=== PATIENT | female | born 2000 | race Caucasian/White ===

== ENCOUNTER → 2018-08-03 | Outpatient (CLI) | payer BC ==
--- NOTE | 2018-08-03 16:34 | RADIOLOGY IMAGING REPORT ---
[place] [facility] [place] Mikki Lucas : 2000 MR: [id number] V: [id number] EXAM DATE: ORDERING PHYSICIAN: JAMIA CAMPOS TECHNOLOGIST: Location: [facility] [place] Patient: Mikki Lucas : 2000 Visit/Account:[id number] Date of Sevice: 08/03/2018 Exam type: SCOLIOSIS SERIES History: Scoliosis, back pain Comparison: None. Findings: There is a 43.5 degree dextro convex scoliosis of the thoracic spine with the curvature centered abou t T8-9. There is a 40.5 degree levoconvex scoliosis of the lumbar spine with the curvature centered about L1-L2 Incidental note is an IUD within the pelvis IMPRESSION: 1. 43.5 degree dextroconvex scoliosis of the thoracic spine with the curvature centered about T8-9 40.5 degree levoconvex scoliosis of the lumbar spine with the curvature centered about L1-L2 Report Dictated By: Anne Marie Staton MD at 08/03/2018 4:22 PM Report E-Signed By: Anne Marie Staton MD at 08/03/2018 4:29 PM WSN:[email or web address]
== END ==
LOC: RAD 15:32
PROVIDERS: ATTEND Nurse Practitioner Psychiatric/Mental Health
DX: M41.84 Other forms of scoliosis, thoracic region (principal); M41.86 Other forms of scoliosis, lumbar region; Z97.5 Presence of (intrauterine) contraceptive device
CPT/HCPCS: 72081